=== PATIENT | female | born 1980 | race Caucasian/White ===

== ENCOUNTER 2021-01-24 11:15 | Outpatient (CLI) | payer OTHER, SELFPAY ==
--- NOTE | 2021-01-24 11:33 | MM_ITS ---
WS: [id number] SCREENING DIGITAL MAMMOGRAM WITH CAD HISTORY: SCREENING COMPARISON: None available. Bilateral CC and MLO views submitted. Computer aided detection analyzed. Breast composition: There are scattered areas of fibroglandular density. Ovoid well-circumscribed 17 mm nodule 3:00 posterior LEFT breast needs further evaluation. Margins are well-circumscribed. There are a few benign calcifications within each breast. MM/[place] [id number] IMPRESSION: BI-RADS: 0-Incomplete: Need additional imaging evaluation FOLLOW UP: Need Additional Imaging RIGHT breast ultrasound recommended posterior 3:00 axis.
== END 2021-01-24 11:16 | disposition home or self-care (01) ==
LOC: RADSHAW 11:30
PROVIDERS: Visit Provider Nurse Practitioner Family
DX: Z12.31 Encounter for screening mammogram for malignant neoplasm of breast (principal)
CPT/HCPCS: 77067

== ENCOUNTER 2021-03-18 14:37 | Outpatient (CLI) | payer OTHER, SELFPAY ==
--- NOTE | 2021-03-18 14:49 | US_ITS ---
WS: [id number] ULTRASOUND RIGHT BREAST HISTORY: ABNORMAL MAMMOGRAM COMPARISON: Mammogram 01/24/2021 TECHNIQUE: 2-D and Doppler. There is a hypoechoic ovoid mass which is solid in the RIGHT breast at 3:00, 6 cm from the nipple. Ma ss measures 1.3 x 0.6 x 1.6 cm. Corresponds in size and location and shape to the mammographic abnorm ality. This is not a simple cyst. No additional suspicious abnormalities. There is a tiny cyst at 3:0 0, 2 cm from the nipple with a maximum diameter of 2 mm. US/US breast RT limited* [id number] IMPRESSION: BI-RADS: 4-Suspicious Finding-Biopsy Should Be Considered FOLLOW-UP: Biopsy Recommended Favor this is a benign lesion such as a fibroadenoma. Recommend confirmation by ultrasound guided biopsy of the RIGHT breast mass at 3:00.
== END 2021-03-18 14:38 | disposition home or self-care (01) ==
LOC: RADSHAW 14:43
PROVIDERS: Visit Provider Nurse Practitioner Family
DX: R92.8 Other abnormal and inconclusive findings on diagnostic imaging of breast (principal); N63.15 Unspecified lump in the right breast, overlapping quadrants
CPT/HCPCS: 76642

== ENCOUNTER 2021-04-10 10:54 | Outpatient (CLI) | payer OTHER, SELFPAY ==
--- NOTE | 2021-04-10 11:02 | US_ITS ---
WS: [email or web address] ULTRASOUND-GUIDED RIGHT BREAST BIOPSY CLINICAL INFORMATION: R BREAST MASS AT 3 O'CLOCK COMPARISON: None. FINDINGS: The procedure including risks, benefits, and complications were discussed with the patient who agreed to proceed. Using sterile technique patient was prepped and draped in the usual sterile fashion. Aft er 1% lidocaine utilizing real-time ultrasound guidance 5 14-gauge cores were obtained of the RIGHT b reast lesion at the 3 o'clock position 6 cm from the nipple. Subsequently a titanium clip was placed in the biopsy cavity. No immediate complications. Pathology demonstrates A. Breast, right, mass, ultrasound-guided biopsy: -Fibroadenoma. -No malignancy identified. US/[place] [id number] IMPRESSION: 1. Uncomplicated ultrasound-guided RIGHT breast biopsy. 2. The pathology demonstrates fibroadenoma. No malignancy identified. 3. Recommend 6 month follow-up RIGHT breast diagnostic mammography and ultraso und. BI-RADS: 2-Benign FOLLOW UP: 6 Month Follow-up
== END 2021-04-10 10:55 | disposition home or self-care (01) ==
LOC: RAD 10:55
PROVIDERS: Visit Provider Nurse Practitioner Family
DX: N63.15 Unspecified lump in the right breast, overlapping quadrants (principal); D24.1 Benign neoplasm of right breast
CPT/HCPCS: 19083; 88305

== ENCOUNTER 2021-10-16 08:13 | Outpatient (CLI) | payer OTHER, SELFPAY ==
--- NOTE | 2021-10-16 08:32 | MM_ITS ---
WS: [email or web address] RIGHT 3D TOMOSYNTHESIS DIGITAL MAMMOGRAPHY WITH CAD CLINICAL INFORMATION: 6 MO F/U POST BX COMPARISON: January 24, 2021 TECHNIQUE: 3 views of the right breast were obtained. FINDINGS: Scattered fibroglandular densities of the right breast. Stable ovoid nodule in her posterior RIGHT br east with biopsy clip. Previous pathology demonstrated fibroadenoma measuring 17 mm. This lesion is u nchanged in appearance. No new suspicious findings. Ultrasound described below. ULTRASOUND BREAST RIGHT TECHNIQUE: Ultrasound right breast focused area of concern. CLINICAL INFORMATION: 6 MO F/U POST BX COMPARISON: 04/10/2021 and 03/18/2021 FINDINGS: Ultrasound RIGHT breast at the 3:00 position 6 cm from the nipple. Ovoid well-circumscribed hypoechoi c nodule with prior pathology demonstrating fibroadenoma. This is stable in appearance compared to th e prior examinations. This measures 1.1 x 0.6 x 1.4 cm. No other suspicious findings. MM/[place] [id number] IMPRESSION: BI-RADS: 2-Benign FOLLOW UP: 1 Year Follow-up Recommend return to annual screening mammography.
== END 2021-10-16 08:14 | disposition home or self-care (01) ==
LOC: RAD 08:14
PROVIDERS: PCP Nurse Practitioner Family; Visit Provider Nurse Practitioner Family
DX: R92.8 Other abnormal and inconclusive findings on diagnostic imaging of breast (principal); N63.15 Unspecified lump in the right breast, overlapping quadrants
CPT/HCPCS: 76642; 77061

== ENCOUNTER 2022-03-07 13:23 | Outpatient (CLI) | payer OTHER, SELFPAY ==
--- NOTE | 2022-03-07 13:30 | MM_ITS ---
WS: [email or web address] BILATERAL 3D TOMOSYNTHESIS DIGITAL SCREENING MAMMOGRAPHY WITH CAD CLINICAL INFORMATION: screening HISTORY: Screening mammogram. No current complaints. COMPARISON: 10/16/2021 and 01/24/2021 TECHNIQUE: Bilateral CC and MLO views. FINDINGS: Scattered fibroglandular densities bilaterally. Stable ovoid nodule posterior RIGHT breast with biops y clip. Previous pathology demonstrated fibroadenoma measuring 17 mm. This lesion is unchanged in ramakrishna earance. LEFT breast is unremarkable and unchanged. A few incidental punctate calcifications. MM/[place] [id number] IMPRESSION: BI-RADS: 2-Benign FOLLOW UP: 1 Year Follow-up Recommend return to annual screening mammography.
== END 2022-03-07 13:24 | disposition home or self-care (01) ==
PROVIDERS: PCP Nurse Practitioner Family; Visit Provider Nurse Practitioner Family
DX: Z12.31 Encounter for screening mammogram for malignant neoplasm of breast (principal)
CPT/HCPCS: 77063; 77067

== ENCOUNTER → 2022-04-07 14:00 | Outpatient (BNVA) | payer OTHER, SELFPAY | PROVIDERS: PCP Nurse Practitioner Family; Visit Provider Podiatrist Foot & Ankle Surgery | DX: M72.2 Plantar fascial fibromatosis (principal); M21.42 Flat foot [pes planus] (acquired), left foot; M21.41 Flat foot [pes planus] (acquired), right foot | CPT/HCPCS: 99204 ==

== ENCOUNTER → 2022-12-09 10:29 | Outpatient (BNVA) | payer OTHER, SELFPAY | PROVIDERS: PCP Nurse Practitioner Family; Referring Provider Nurse Practitioner Family; Visit Provider Internal Medicine | DX: E05.90 Thyrotoxicosis, unspecified without thyrotoxic crisis or storm (principal); E89.0 Postprocedural hypothyroidism; F41.9 Anxiety disorder, unspecified | CPT/HCPCS: 99204 ==

== ENCOUNTER 2022-12-18 12:02 | Outpatient (CLI) | payer OTHER, SELFPAY ==
[2022-12-18 14:16] LABS: Free T4 Free Thyroxine 1.44 ng/dL (0.82-1.77); Thyroid Stimulating Hormone 0.08 uIU/mL (0.27-4.20)
[2022-12-19 09:59] LABS: T3 Total 147 ng/dL (76-181)
[2022-12-22 09:04] LABS: Thyroglobulin AB <1 IU/mL (< or = 1)
[2022-12-27 14:10] LABS: TSH Receptor Binding Antibody 1.11 IU/L (< OR = 2.00)
== END 2022-12-18 12:03 | disposition home or self-care (01) ==
LOC: LAB 12:03
PROVIDERS: PCP Nurse Practitioner Family; Visit Provider Internal Medicine
DX: E05.90 Thyrotoxicosis, unspecified without thyrotoxic crisis or storm (principal); E89.0 Postprocedural hypothyroidism; M72.2 Plantar fascial fibromatosis; M21.42 Flat foot [pes planus] (acquired), left foot
CPT/HCPCS: 36415; 83516; 84439; 84443; 84480; 86800; 99213

== ENCOUNTER → 2023-04-06 11:02 | Outpatient (BNVA) | payer OTHER, SELFPAY | PROVIDERS: PCP Nurse Practitioner Family; Visit Provider Internal Medicine | DX: E05.90 Thyrotoxicosis, unspecified without thyrotoxic crisis or storm (principal); E89.0 Postprocedural hypothyroidism; F41.9 Anxiety disorder, unspecified; N92.6 Irregular menstruation, unspecified | CPT/HCPCS: 36415; 84439; 84443; 84480; 99214 ==

== ENCOUNTER → 2023-05-11 09:35 | Outpatient (BNVA) | payer OTHER, MEDICAID, SELFPAY | PROVIDERS: PCP Nurse Practitioner Family; Visit Provider Podiatrist Foot & Ankle Surgery | DX: M10.072 Idiopathic gout, left ankle and foot (principal) | CPT/HCPCS: 73630; 99213 ==

== ENCOUNTER 2023-05-21 09:05 | Outpatient (CLI) | payer OTHER, SELFPAY ==
--- NOTE | 2023-05-21 09:20 | MM_ITS ---
WS: [email or web address] BILATERAL SCREENING DIGITAL TOMOSYNTHESIS MAMMOGRAM WITH CAD HISTORY: SCREENING COMPARISON: 03/07/2022, 10/16/2020 and 01/24/2021 Bilateral CC and MLO views with tomosynthesis and synthetic mammography submitted. Computer aided det ection analyzed. Breast composition: There are scattered areas of fibroglandular density. No suspicious masses, microc alcifications or architectural distortion. Ovoid 17 mm mass 3:00 RIGHT breast posteriorly contains a prior biopsy clip. Noted to be a fibroadenoma. No suspicious mass or calcification. IMPRESSION: MM/[place] [id number] BI-RADS: 2-Benign FOLLOW UP: 1 Year Follow-up
== END 2023-05-21 09:06 | disposition home or self-care (01) ==
LOC: RAD 09:06
PROVIDERS: PCP Nurse Practitioner Family; Visit Provider Nurse Practitioner Family
DX: Z12.31 Encounter for screening mammogram for malignant neoplasm of breast (principal)
CPT/HCPCS: 77063; 77067

== ENCOUNTER 2023-08-25 08:14 | Outpatient (CLI) | payer OTHER, SELFPAY ==
[2023-08-25 09:04] LABS: Thyroid Stimulating Hormone 3.74 uIU/mL (0.27-4.20)
[2023-08-26 08:10] LABS: T3 Total 120 ng/dL (76-181)
== END 2023-08-25 08:15 | disposition home or self-care (01) ==
LOC: LAB 08:15
PROVIDERS: PCP Nurse Practitioner Family; Visit Provider Internal Medicine
DX: E05.90 Thyrotoxicosis, unspecified without thyrotoxic crisis or storm (principal); E89.0 Postprocedural hypothyroidism
CPT/HCPCS: 36415; 84439; 84443; 84480

== ENCOUNTER → 2023-08-26 09:30 | Outpatient (BNVA) | payer OTHER, SELFPAY | PROVIDERS: PCP Nurse Practitioner Family; Visit Provider Internal Medicine | DX: E05.90 Thyrotoxicosis, unspecified without thyrotoxic crisis or storm (principal); E89.0 Postprocedural hypothyroidism | CPT/HCPCS: 99214 ==

== ENCOUNTER 2023-09-21 08:00 | Outpatient (CLI) | payer OTHER, SELFPAY ==
--- NOTE | 2023-09-21 08:00 | NM_ITS ---
WS: [email or web address] NUCLEAR MEDICINE 24 HOUR I-123 THYROID UPTAKE INDICATION: History of partial thyroidectomy. History of thyroid nodules. TECHNIQUE: I-123 24 HOUR THYROID UPTAKE WITH PLANAR IMAGING. 155 UCI MYRNA 123 COMPARISON: None FINDINGS: History of RIGHT partial thyroidectomy. Slightly increased 24-hour thyroid uptake 40.46%. Homogeneous uptake in the LEFT thyroid lobe. No sig nificant uptake in the RIGHT thyroid bed. (NORMAL 24H THRYOID UPTAKE 8-35%} NM/NM thyroid uptake multi [id number] IMPRESSION: Increased 24-hour thyroid uptake at 40.46%
== END 2023-09-21 08:10 | disposition home or self-care (01) ==
PROVIDERS: PCP Nurse Practitioner Family; Visit Provider Internal Medicine
DX: E89.0 Postprocedural hypothyroidism (principal); E05.90 Thyrotoxicosis, unspecified without thyrotoxic crisis or storm; R94.6 Abnormal results of thyroid function studies
CPT/HCPCS: 78014; A9516

== ENCOUNTER → 2024-03-01 05:47 | Day surgery (SDC) | payer OTHER, SELFPAY ==
[2024-03-01 06:11] VITALS: BMI 37.5
[2024-03-01 06:19] LABS: Glucose Point of Care 118 mg/dL (70-110)
[2024-03-01] MEDS: sodium chloride 0.9% 1,000 ML 30 ML IV (06:22)
--- NOTE | 2024-03-01 06:25 | ANES.PREANE2 ---
Pre-Anesthetic Assessment Height/Weight: Height 5 ft 5 in Weight 226 lb O2 Del Method Room Air 03/01/24 06:11 Preop Diagnosis: Hypothyroidism Operation Date: 03/01/24 07:00 Proposed Procedures p Hemithyroidectomy/Completion Thyroidectomy(Left) - Domenico Dumont MD Was Beta Milton taken within 24 hours: Yes Was Clonidine taken within 24 hours: N/A Last intake: Intake Last Liquid Date 02/29/24 Last Liquid Time 22:00 Last Solid Date 02/29/24 Last Solid Time 22:00 Social No alcohol and No tobacco Exam alert, oriented x 3, clear to auscultation bilaterally and regular rate & rhythm Airway Submandibular: within normal limits Cervical ROM: within normal limits Mallampati: Class II Dentition: full Anesthetic Plan ASA status: 3 Anesthesia: General Other: No prior issues with anesthesia NPO since yesterday History of diabetes on metformin Hypertension on metoprolol BMI 37 METs greater than 4 Plan for GETA Medications/Allergies Home Medications Medication Instructions Recorded Confirmed Last Taken Type Low profile custom molded insoles #1 ea 04/07/22 08/26/23 Unknown Rx cholecalciferol (vitamin D3) 50 50 mcg PO DAILY 12/09/22 02/29/24 02/29/24 History mcg (2,000 unit) capsule docusate sodium 50 mg capsule 50 mg PO DAILY 12/09/22 02/29/24 02/29/24 History duloxetine 30 mg capsule,delayed 30 mg PO DAILY 12/09/22 02/29/24 02/29/24 History release ferrous gluconate 324 mg (37.5 mg 324 mg PO DAILY 12/09/22 02/29/24 02/29/24 History iron) tablet folic acid 1 mg tablet 1 mg PO DAILY 12/09/22 02/29/24 02/29/24 History metformin 500 mg tablet 500 mg PO DAILY 12/09/22 02/29/24 02/29/24 History metoprolol succinate 200 mg 200 mg PO DAILY 12/09/22 03/01/24 03/01/24 History tablet,extended release 24 hr pediatric multivitamin no.76 1 tab PO DAILY 12/09/22 02/29/24 02/29/24 History (Flintstones Complete chewable tablet) potassium citrate 99 mg capsule mg PO 12/09/22 08/26/23 02/29/24 History triamterene 75 1 tab PO DAILY 12/09/22 02/29/24 02/29/24 History mg-hydrochlorothiazide 50 mg tablet night splint #1 ea 12/18/22 08/26/23 Unknown Rx allopurinol 200 mg tablet 200 mg PO DAILY 05/11/23 02/29/24 02/29/24 History colchicine 0.6 mg tablet 0.6 mg PO DAILY #30 tabs 05/11/23 02/29/24 02/28/24 Rx methimazole 5 mg tablet See Rx Instructions .Route 09/28/23 02/29/24 02/29/24 Rx .COMPLEX #90 tabs Allergies Allergy/AdvReac Type Severity Reaction Status Date / Time No Known Drug Allergies Allergy NKDA Verified 12/24/23 12:19 Current Medications Generic Name Dose Route Start Last Admin Trade Name Freq PRN Reason Stop Dose Admin Sodium Chloride 1,000 mls @ 30 mls/hr 03/01/24 06:00 03/01/24 06:22 Sodium Chloride 0.9% IV 03/02/24 05:59 30 mls/hr .Q24H PETR Administration PFSH Anesthesia Medical History Diabetes Surgical History H/O partial thyroidectomy Social History Smoking and tobacco/nicotine status: never used tobacco/nicotine Female Reproductive History Date of last menstrual period: 12/02/23 Data Anesthesia Cardiac Studies: No Data to Display
[2024-03-01 06:37] LABS: OR HCG Qualitative Urine Negative (Negative)
== END ==
LOC: OR 05:48
PROVIDERS: PCP Nurse Practitioner Family; Visit Provider Specialist
DX: Z01.818 Encounter for other preprocedural examination (principal)
CPT/HCPCS: 36416; 81025; 82962; J0330; J1100; J2371; J2405; J2704; J3010; J7030

== ENCOUNTER 2024-06-10 09:48 | Outpatient (CLI) | payer OTHER, SELFPAY ==
--- NOTE | 2024-06-10 09:50 | MM_ITS ---
WS: [email or web address] BILATERAL SCREENING DIGITAL TOMOSYNTHESIS MAMMOGRAM WITH CAD HISTORY: SCREENING COMPARISON: 05/21/2023, 03/07/2022, 01/24/2021 Bilateral CC and MLO views with tomosynthesis and synthetic mammography submitted. Computer aided detection analyzed. Breast composition: There are scattered areas of fibroglandular density. No suspicious masses, microcalcifications or architectural distortion. Long-term stability ovoid mass with biopsy clip in the medial RIGHT breast. No suspicious masses or grouping of calcifications. MM/MM scr BI tomosynthesis [id number] IMPRESSION: BI-RADS: 2 - Benign. FOLLOW UP: 1 Year Follow-up
== END 2024-06-10 09:49 | disposition home or self-care (01) ==
PROVIDERS: PCP Nurse Practitioner Family; Visit Provider Nurse Practitioner Family
DX: Z12.31 Encounter for screening mammogram for malignant neoplasm of breast (principal); R92.323 Mammographic fibroglandular density, bilateral breasts; N63.10 Unspecified lump in the right breast, unspecified quadrant
CPT/HCPCS: 77063; 77067

== ENCOUNTER → 2025-01-16 12:00 | Outpatient (BNVA) | payer OTHER, SELFPAY | PROVIDERS: PCP Nurse Practitioner Family; Visit Provider Podiatrist Foot & Ankle Surgery | DX: M10.9 Gout, unspecified (principal) | CPT/HCPCS: 99212 ==

== ENCOUNTER → 2025-01-30 13:00 | Outpatient (BNVA) | payer OTHER, SELFPAY | PROVIDERS: PCP Nurse Practitioner Family; Visit Provider Podiatrist Foot & Ankle Surgery | DX: M10.9 Gout, unspecified (principal) | CPT/HCPCS: 99213 ==